=== PATIENT | female | born 1965 | race Caucasian/White ===

== ENCOUNTER → 2016-06-19 | Outpatient (CLI) | payer BC ==
[~2016-06-19] MED LIST: ADVIL200 MG PO; CLARITIN 1010 MG/TAB PO; MULTI VITAMINS1 TAB PO; PERCOCET 325 MG1 TA2 PO; TYLENOL 500MG500 MG PO
== END ==
LOC: MC.RAD 15:42
DX: Z12.31 Encounter for screening mammogram for malignant neoplasm of breast (principal)

== ENCOUNTER → 2016-11-10 | Day surgery (SDC) | payer BC ==
[2016-11-10] VITALS (9 sets, daily range): BP systolic 112–125; BP diastolic 59–68; PULSE 56–80; TEMP 98.2–99.4
[~2016-11-10] VITALS: Ht 172.7 cm; Wt 86.6 kg
[2016-11-11] VITALS: BP 116/59; PULSE 65; TEMP 98.6
[2016-11-11 04:00] VITALS: BP 114/56; PULSE 65; TEMP 99.1
[2016-11-11 08:20] VITALS: BP 101/62; PULSE 59; TEMP 98.9
== END ==
LOC: SDCO 10:45 → OB 19:54 → SDCO 11-12 19:54
DX: N80.0 Endometriosis of uterus (principal); N83.12 Corpus luteum cyst of left ovary; N83.8 Other noninflammatory disorders of ovary, fallopian tube and broad ligament; N95.0 Postmenopausal bleeding; N73.6 Female pelvic peritoneal adhesions (postinfective); Z90.49 Acquired absence of other specified parts of digestive tract; Z85.89 Personal history of malignant neoplasm of other organs and systems
CPT/HCPCS: OP; A4315; J0690; J1100; J1885; J2405; J2704; J2710; J3010; J7120; Q9968

== ENCOUNTER → 2017-12-02 | Outpatient (CLI) | payer BC | LOC: MC.RAD 13:23 | DX: Z12.31 Encounter for screening mammogram for malignant neoplasm of breast (principal) ==

== ENCOUNTER → 2019-03-01 | Outpatient (CLI) | payer BC | LOC: MC.RAD 11:11 | DX: Z12.31 Encounter for screening mammogram for malignant neoplasm of breast (principal) ==

== ENCOUNTER → 2020-03-20 | Outpatient (CLI) | payer BC | LOC: MC.RAD 15:22 | DX: Z12.31 Encounter for screening mammogram for malignant neoplasm of breast (principal) ==

== ENCOUNTER → 2021-04-23 | Outpatient (CLI) | payer BC | LOC: MC.RAD 11:12 | DX: Z12.31 Encounter for screening mammogram for malignant neoplasm of breast (principal) ==